=== PATIENT | female | born 1930 | race Caucasian/White ===

== ENCOUNTER 2019-04-12 20:22 | Inpatient (IN) ==
[2019-04-12 21:34] LABS: Basophils # 0.1 10*3/uL (0.0-0.2); Basophils % 1.1 % (0.0-0.8); Eosinophils # 0.1 10*3/uL (0.0-0.87); Eosinophils % 1.5 % (0.00-10.9); Hemoglobin 12.1 GM/DL (12.0-16.0); Immature Granulocytes % 0.4 %; Immature Granulocytes Absolute 0.03 #; Lymphocytes # 1.4 10*3/uL (1.4-4.0); Lymphocytes % 18.7 % (21.3-54.2); Mean Corpuscular HGB Conc 31.8 GM/DL (32-36); Mean Platelet Volume 9.7 FL (9.6-12.0); Monocytes % 13.7 % (1.7-12.7); Neutrophils % 64.6 % (38.7-73.9); Platelet Count 218 T/CUMM (130-400); Red Blood Count 3.84 MC/CUMM (3.8-5.5); Red Cell Distribution Width 12.6 % (9.3-17.3); White Blood Count 7.5 T/CUMM (4-12)
[2019-04-12] MEDS ORDERED: hydrALAZINE 20 MG/1 ML VIAL IV STA (21:42)
[2019-04-12 21:44] LABS: PT Patient Result 10.6 SECS (9.6-12.2); Partial Thromboplastin Time 28.4 SECS (20.8-36.0)
[2019-04-12 21:58] LABS: Alanine Aminotransferase 12 U/L (13-56); Albumin 2.8 G/DL (3.4-5.0); Alkaline Phosphatase 79 U/L (45-117); Aspartate Amino Transferase 17 U/L (0-37); Bilirubin,Total < 0.39 MG/DL (0.2-1.0); Blood Urea Nitrogen 27 MG/DL (7-18); Calcium 8.8 MG/DL (8.5-10.1); Estimated Glom Filtration Rate 33 ML/MIN; Glucose 117 MG/DL (74-106); Osmolality,Calculated 286.3 MOS/KG (273-304); Total Protein 6.9 G/DL (6.4-8.3); Troponin I < 0.015 NG/ML (0.00-0.045)
[2019-04-12 22:00] LABS: Apearance,Urine CLEAR (Clear); Bilirubin,Urine Negative (Negative); Blood, Urine Negative (Negative); Glucose,Urine (UA) 50 mg/dL (Negative); Hyaline Casts,Urine 3 /LPF (0-3); Ketones,Urine Negative (Negative); Mucus,Urine Occasional /LPF (Occasional); Nitrite,Urine Negative (Negative); Protein,Urine >=500 MG/DL; RBC,Urine 1 /HPF (0-4); Urine Color Yellow (Yellow); Urine Specific Gravity 1.013 (1.001-1.035); Urine Urobilinogen < 2.0 EU/DL (0.2-1.0); WBC,Urine 2 /HPF (0-6)
[2019-04-13] MEDS ORDERED: SODIUM CHLORIDE 0.9% 1,000 ML IV SCH (02:19)
[2019-04-13] MEDS ORDERED: LABETALOL 20 MG/4 ML SYRINGE IV PRN (02:19)
[2019-04-13 02:59] LABS: Basophils # 0.1 10*3/uL (0.0-0.2); Basophils % 0.8 % (0.0-0.8); Eosinophils # 0.2 10*3/uL (0.0-0.87); Eosinophils % 1.9 % (0.00-10.9); Hematocrit 31.9 VOL% (35.7-47.0); Hemoglobin 9.8 GM/DL (12.0-16.0); Immature Granulocytes % 0.4 %; Immature Granulocytes Absolute 0.04 #; Lymphocytes # 2.4 10*3/uL (1.4-4.0); Lymphocytes % 26.8 % (21.3-54.2); Mean Corpuscular HGB Conc 30.7 GM/DL (32-36); Mean Corpuscular Volume 100.3 FL (87-102); Mean Platelet Volume 10.1 FL (9.6-12.0); Monocytes % 14.8 % (1.7-12.7); Neutrophils % 55.3 % (38.7-73.9); Platelet Count 239 T/CUMM (130-400); Red Blood Count 3.18 MC/CUMM (3.8-5.5); Red Cell Distribution Width 12.6 % (9.3-17.3)
[2019-04-13 03:41] LABS: Osmolality,Calculated 288.1 MOS/KG (273-304); Risk Ratio 3.07; Thyroid Stimulating Hormone 0.691 uIU/ml (0.358-3.74)
[2019-04-13] MEDS: hydrALAZINE 20 MG/1 ML VIAL IV PRN ×2 (09:29→17:22)
[2019-04-13] MEDS: ASPIRIN 300 MG SUPP RECTAL SCH (09:36)
[2019-04-13] MEDS: ROSUVASTATIN 20 MG TABLET PO SCH ×2 (09:47→14:37)
[2019-04-13] MEDS: POTASSIUM CHLORIDE 10 MEQ TABLET PO SCH ×2 (14:15→21:11)
[2019-04-13] MEDS: atenoloL 50 MG TABLET PO SCH (14:16)
[2019-04-13] MEDS: LEVOTHYROXINE 25 MCG TABLET PO SCH (14:16)
[2019-04-13] MEDS: PARoxetine 20 MG TABLET PO SCH (14:16)
[2019-04-13] MEDS: amLODIPine 5 MG TABLET PO SCH (14:18)
[2019-04-13] MEDS: allopurinoL 100 MG TABLET PO SCH (14:19)
[2019-04-13] MEDS: GABAPENTIN 300 MG CAPSULE PO SCH ×2 (14:20→21:12)
[2019-04-13] MEDS: RIVASTIGMINE 4.6 MG/24 HR PATCH TRANSDERM SCH (14:21)
[2019-04-13] MEDS: MEMANTINE 10 MG TABLET PO SCH ×2 (14:26→21:12)
[2019-04-13] MEDS: COENZYME Q10 100 MG CAPSULE PO SCH (14:26)
[2019-04-13] MEDS: HYOSCYAMINE 0.125 MG TABLET PO SCH (14:26)
[2019-04-13] MEDS: EZETIMIBE 10 MG TABLET PO SCH (14:27)
[2019-04-13] MEDS: CHOLESTYRAMINE/ASPARTAME 4 GM PACK PO SCH (14:38)
[2019-04-14] MEDS: LEVOTHYROXINE 25 MCG TABLET PO SCH (06:24)
[2019-04-14] MEDS ORDERED: CLOPIDOGREL 75 MG TABLET PO SCH (09:00)
[2019-04-14] MEDS: RIVASTIGMINE 4.6 MG/24 HR PATCH TRANSDERM SCH (09:27)
[2019-04-14] MEDS: ROSUVASTATIN 20 MG TABLET PO SCH (09:28)
[2019-04-14] MEDS: PARoxetine 20 MG TABLET PO SCH (09:28)
[2019-04-14] MEDS: amLODIPine 5 MG TABLET PO SCH (09:28)
[2019-04-14] MEDS: EZETIMIBE 10 MG TABLET PO SCH (09:28)
[2019-04-14] MEDS: MEMANTINE 10 MG TABLET PO SCH (09:28)
[2019-04-14] MEDS: GABAPENTIN 300 MG CAPSULE PO SCH (09:29)
[2019-04-14] MEDS: allopurinoL 100 MG TABLET PO SCH (09:29)
[2019-04-14] MEDS: atenoloL 50 MG TABLET PO SCH (09:29)
[2019-04-14] MEDS: POTASSIUM CHLORIDE 10 MEQ TABLET PO SCH (09:29)
[2019-04-14] MEDS: COENZYME Q10 100 MG CAPSULE PO SCH (09:29)
[2019-04-14] MEDS: HYOSCYAMINE 0.125 MG TABLET PO SCH (09:41)
[2019-04-14] MEDS: CHOLESTYRAMINE/ASPARTAME 4 GM PACK PO SCH (09:42)
[2019-04-14] MEDS: ASPIRIN 300 MG SUPP RECTAL SCH (09:42)
[2019-04-14 12:35] VITALS: BP 154/50
== END 2019-04-14 15:00 | DRG 64 ==
LOC: N.ED 20:22 → N.EDINP 23:41 → SUATTDRO 23:41 → N.4E 04-13 01:11
PROVIDERS: ADMIT Internal Medicine; ATTEND Internal Medicine